=== PATIENT | male | born 1990 | race Caucasian/White ===

== ENCOUNTER 2021-02-06 10:57 | Emergency (ER) | payer OTHER ==
[2021-02-06 11:05] VITALS: BP 140/90; PULSE 78; TEMP 98.2; BMI 33.5
[2021-02-06] MEDS ORDERED: DIPHTH,PERTUSS(ACELL),TET 0.5 ML DISP.SYRIN IM ONE ×2 (11:18→11:26)
[2021-02-06 14:43] LABS: HIV INTERPRETATION NEGATIVE (NEGATIVE)
== END 2021-02-06 11:51 | disposition home or self-care (01) ==
LOC: FER 10:57
PROC: 3E0234Z Introduction of Serum, Toxoid and Vaccine into Muscle, Percutaneous Approach (ICD-10-PCS; principal; 2021-02-06)
DX: Z77.21 Contact with and (suspected) exposure to potentially hazardous body fluids (principal)
CPT/HCPCS: 36415; 86317; 86704; 86706; 86803; 87340; 87389; 90715; 99284-25

== ENCOUNTER 2022-03-05 00:43 | Emergency (ER) | payer OTHER ==
[2022-03-05 00:50] VITALS: BP 144/109; PULSE 81; TEMP 98.1; BMI 34.3
[2022-03-05] MEDS ORDERED: CEPHALEXIN MONOHYDRATE 500 MG CAPSULE (UD) ONE (00:51)
[2022-03-05] MEDS ORDERED: CEPHALEXIN MONOHYDRATE 500 MG CAPSULE (UD) PO ONE (00:52)
== END 2022-03-05 01:18 | disposition home or self-care (01) ==
LOC: FER 00:43
DX: S50.811A Abrasion of right forearm, initial encounter (principal); Y35.891A Legal intervention involving other specified means, law enforcement official injured, initial encounter
CPT/HCPCS: 99283-25